=== PATIENT | male | born 1970 ===

== ENCOUNTER 2017-01-24 18:00 | Emergency (ER) | payer SELFPAY ==
--- NOTE | 2017-01-24 21:56 | Emergency Department Report ---
- General Chief Complaint: Upper Respiratory Infection Stated Complaint: productive cough Time Seen by Provider: 01/24/17 21:23 Source: patient Mode of arrival: Ambulatory Limitations: No Limitations - History of Present Illness Initial Comments: This is a 46-year-old male that presents with upper respiratory symptoms. Patient states has been sick for 3 weeks but started to subside and feel better little bit. Patient stated the past 6 days symptoms has reoccurred. Patient stated has had a congestion and cough. Has a productive yellow/green sputum production. Patient stated been taking Mucinex, Advil Cold and Sinus. With mild relief. Patient denies any shortness of breath or chest pain. Patient stated is unaware of being incontinent and when sick. Patient is a poor haul truck driver. Denies any wheezing, runny nose, fever, chills. Patient stated mild sore throat with nasal congestion. MD Complaint: cough (productive with yellow/green), sore throat (mild), nasal congestion -: Gradual, week(s) (3) Severity: moderate Improves With: nothing - Related Data Previous Rx's Medication Instructions Recorded Last Taken Type ALBUTEROL Inhaler [ProAir HFA 2 puff IH QID PRN #1 inhalation 01/24/17 Unknown Rx Inhaler] Azithromycin [Zithromax] 250 mg PO DAILY #6 tablet 01/24/17 Unknown Rx Ibuprofen [Motrin 600 MG tab] 600 mg PO PRN PRN #10 tablet 01/24/17 Unknown Rx Prednisone [predniSONE] 40 mg PO QDAY #5 tab 01/24/17 Unknown Rx Allergies Allergy/AdvReac Type Severity Reaction Status Date / Time No Known Allergies Allergy Verified 01/24/17 18:16 ED Review of Systems ROS: Stated complaint: SOB Other details as noted in HPI Comment: All other systems reviewed and negative Constitutional: denies: chills, fever Eyes: denies: eye pain, eye discharge, vision change ENT: throat pain, congestion. denies: ear pain, dental pain, hearing loss Respiratory: cough. denies: shortness of breath, SOB with exertion, SOB at rest , stridor, wheezing Cardiovascular: denies: chest pain, palpitations Endocrine: no symptoms reported Gastrointestinal: denies: abdominal pain, nausea, diarrhea Genitourinary: denies: urgency, dysuria Musculoskeletal: denies: back pain, joint swelling, arthralgia Skin: denies: rash, lesions Neurological: as per HPI Psychiatric: denies: anxiety, depression Hematological/Lymphatic: denies: easy bleeding, easy bruising ED Past Medical Hx - Past Medical History Previous Medical History?: No - Surgical History Past Surgical History?: No - Social History Smoking Status: Never Smoker Substance Use Type: None, Marijuana - Medications Home Medications: Home Medications Medication Instructions Recorded Confirmed Last Taken Type ALBUTEROL Inhaler [ProAir HFA 2 puff IH QID PRN #1 inhalation 01/24/17 Unknown Rx Inhaler] Azithromycin [Zithromax] 250 mg PO DAILY #6 tablet 01/24/17 Unknown Rx Ibuprofen [Motrin 600 MG tab] 600 mg PO PRN PRN #10 tablet 01/24/17 Unknown Rx Prednisone [predniSONE] 40 mg PO QDAY #5 tab 01/24/17 Unknown Rx ED Physical Exam - General Limitations: No Limitations General appearance: alert, in no apparent distress - Head Head exam: Present: atraumatic, normocephalic - Eye Eye exam: Present: normal appearance - ENT ENT exam: Present: mucous membranes moist - Neck Neck exam: Present: normal inspection - Respiratory Respiratory exam: Present: normal lung sounds bilaterally. Absent: respiratory distress, wheezes, rales, rhonchi, chest wall tenderness, accessory muscle use - Cardiovascular Cardiovascular Exam: Present: normal rhythm. Absent: systolic murmur, diastolic murmur, rubs, gallop - GI/Abdominal GI/Abdominal exam: Present: soft, normal bowel sounds - Extremities Exam Extremities exam: Present: normal inspection, full ROM, normal capillary refill. Absent: tenderness, pedal edema - Back Exam Back exam: Present: normal inspection, full ROM. Absent: tenderness, CVA tenderness (R), CVA tenderness (L), muscle spasm - Neurological Exam Neurological exam: Present: alert, oriented X3, CN II-XII intact - Psychiatric Psychiatric exam: Present: normal affect, normal mood - Skin Skin exam: Present: warm, dry, intact, normal color. Absent: rash ED Course Vital Signs 01/24/17 01/24/17 18:13 23:03 Temperature 98.2 F Pulse Rate 104 H 95 H Respiratory 18 20 Rate Blood Pressure 133/92 Blood Pressure 125/88 [Left] O2 Sat by Pulse 96 97 Oximetry Vital Signs 01/24/17 01/24/17 18:13 23:03 Temperature 98.2 F Pulse Rate 104 H 95 H Respiratory 18 20 Rate Blood Pressure 133/92 Blood Pressure 125/88 [Left] O2 Sat by Pulse 96 97 Oximetry - Reevaluation(s) Reevaluation #1: 01/24/17 22:47 At this time the patient does not seem toxic or ill appearance. No signs of distress. ED Medical Decision Making - Medical Decision Making Ed course: 46-year-old male that presents with upper respiratory infection. 1-instructed the patient to take antibiotics as prescribed. 2- please follow-up with your primary care doctor in 3-5 days 3- if symptoms worsen such as shortness of breath, chest pain, wheezing, numbness tingling, nausea vomiting headache is reported by the emergency room. 4- instructed the patient to increase fluids. 5- Dr. Sena aware of patient and HR. Agreed to d/c. At this time the patient does not seem toxic appearance or ill. No signs of any distress. Critical care attestation.: If time is entered above; I have spent that time in minutes in the direct care of this critically ill patient, excluding procedure time. ED Disposition Clinical Impression: Cough Pharyngitis Qualifiers: Pharyngitis/tonsillitis etiology: unspecified etiology Qualified Code(s): J02.9 - Acute pharyngitis, unspecified Upper respiratory infection Qualifiers: URI type: unspecified URI Qualified Code(s): J06.9 - Acute upper respiratory infection, unspecified Disposition: DISCHARGED TO HOME OR SELFCARE Is pt being admited?: No Does the pt Need Aspirin: No Condition: Stable Instructions: Upper Respiratory Infection (ED), Cold Symptoms (ED) Additional Instructions: Please follow up with a primary care doctor in 3-5 days. Please finish taken a full course of antibiotics. Increase fluid intake. Rest as much as possible. Prescriptions: ALBUTEROL Inhaler [ProAir HFA Inhaler] 2 puff IH QID PRN #1 inhalation PRN Reason: Shortness Of Breath Azithromycin [Zithromax] 250 mg PO DAILY #6 tablet Ibuprofen [Motrin 600 MG tab] 600 mg PO PRN PRN #10 tablet PRN Reason: Pain Prednisone [predniSONE] 40 mg PO QDAY #5 tab Referrals: PRIMARY CARE, [Primary Care Provider] - 3-5 Days Forms: Work/School Release Form(ED)
[2017-01-24 23:04] VITALS: BP 125/88
== END 2017-01-24 23:27 | disposition home or self-care (01) ==
LOC: ED 18:00
DX: R05 Cough (principal); J02.9 Acute pharyngitis, unspecified; J06.9 Acute upper respiratory infection, unspecified; F12.10 Cannabis abuse, uncomplicated
CPT/HCPCS: 99282